=== PATIENT | male | born 1980 | race Caucasian/White ===

== ENCOUNTER 2023-04-03 13:31 | Emergency (ER) | payer BC, SELFPAY ==
[2023-04-03 13:45] VITALS: BP 124/79; PULSE 45; RESP 18; TEMP 36.4; O2SAT 94; BMI 25.8
--- NOTE | 2023-04-03 13:52 | CRLHL7_ITS ---
For Patients: As a result of the Cures Act, medical imaging exams and procedure reports are released immediately into your electronic medical record. You may view this report before your referring provider. If you have questions, please contact your health care provider. Indication: Finger injury Technique: Three views left 2nd finger. Comparison: None. Findings/Impression: Acute complete nondisplaced oblique fracture of the middle 2nd phalanx with likely intra-articular extension. Associated soft tissue swelling. Joint spaces are otherwise maintained. Bony mineralization is age appropriate. Dictated by Stan Monaco MD @ 04/03/2023 3:24:03 PM (Electronically Signed)
[2023-04-03] MEDS: BUPIVACAINE 0.25% 30 ML INJECTION (15:05)
--- NOTE | 2023-04-03 15:13 | ED.NURSE ---
Pt reports feeling dizzy/lightheaded post-digital block injection. Pt reclined, vitals checked. VSS. Pt reports dizziness resolved after several minutes.
[2023-04-03 15:14] VITALS: BP 96/67; PULSE 52; RESP 16; O2SAT 98
--- NOTE | 2023-04-03 15:28 | ED_ITS ---
HPI - General Adult General Date Seen: 04/03/23 Chief complaint: Extremity Pain/Injury, Upper Stated complaint: L middle finger twisted and misshapen (broken?) Time Seen by Provider: 04/03/23 14:41 History of Present Illness HPI narrative: This is a generally healthy 43-year-old male who presents to the ER today with an injury to his left middle finger. He was playing with his daughter on the swings today when he got his finger twisted in injured. He is experiencing pain mostly in the middle phalanx. No associated numbness. He is not able to flex or extend his finger due to pain. No other injuries other than his left middle finger. No injury to his wrist, thumb, upper arm. He did not hurt his head or neck on the swings. Related Data Home Medications Medication Instructions Recorded Confirmed escitalopram oxalate 20 mg tablet 20 mg PO QDAY 05/19/22 04/03/23 fluvoxamine 100 mg tablet 100 mg PO QPM 04/03/23 fluvoxamine 50 mg tablet 25 mg PO 04/03/23 Previous Rx's Medication Instructions Recorded hydrocodone 5 mg-acetaminophen 325 1 tab PO Q4-6H PRN pain #10 tabs 04/03/23 mg tablet Allergies Allergy/AdvReac Type Severity Reaction Status Date / Time No Known Drug Allergies Allergy Verified 04/03/23 13:49 [facility] Medical History (Updated 04/03/23 @ 15:32 by Bradly Figueroa MD) URI (upper respiratory infection) ?J06.9 - Acute upper respiratory infection, unspecified (ICD-10) Social History Smoking Status: Never smoker Do you use any of these nicotine containing products: None Second hand tobacco smoke exposure: No How often do you have a drink containing alcohol: 2-3 times a week AUDIT-C Alcohol total score: 3 Non-prescribed substance use: denies use Exam Narrative: Exam Narrative: Constitutional: Appears well-developed and well-nourished. Alert. Conversant. Non toxic. HENT: Head: Atraumatic. Nose: Nose normal. Mouth/Throat: Oral mucosa is clear and moist. no trismus.. Eyes: Conjunctivae normal. EOM normal. Pupils equal, round, and reactive to light. No scleral icterus. Neck: Normal range of motion. Neck supple. No tracheal deviation present. Cardiovascular: Normal rate, regular rhythm. No gallop. No friction rub. No murmur heard. Symmetric radial artery pulses . Normal distal capillary refill in his finger tips. Pulmonary/Chest: Effort normal. No stridor. No respiratory distress. Musculoskeletal: RUE: Normal range of motion. No tenderness. No deformity LUE: Normal except for his left middle finger- Normal range of motion. No tenderness. No deformity Left hand: Thumb, thenar eminence, body of the hand, hypothenar eminence are normal. Digits 2, 4, 5 are normal. He has tenderness and swelling affecting t he middle phalanx and distal phalanx of the 3rd digit. Range of motion testing in the MCP, PIP, DI P is limited by pain. Swelling seems for dominantly present over the middle phalanx. There does appears to be some rotational deformity of the distal portion of the 3rd digit. No angulation. No laceration. Intact radial and ulnar digital nerve sensory function. RLE: Normal range of motion. No edema. No tenderness. No deformity LLE: Normal range of motion. No edema. No tenderness. No deformity Neurological: Alert and oriented to person, place, and time. Normal strength. CN II-VII intact. No sensory deficit. GCS eye subscore is 4. GCS verbal subscore is 5. GCS motor subscore is 6. Normal coordination Skin: Skin is warm and dry. No rash noted. No pallor. Normal capillary refill. Psychiatric: Normal mood. Normal affect. Const: Vital Signs, click to edit/add: Vital Signs - 24 hr 04/03/23 13:45 04/03/23 15:14 Temperature 97.6 F Pulse Rate [Pulse Oximeter] 45 L 52 L Respiratory Rate 18 16 Blood Pressure [[facility] Upper Arm] 124/79 96/67 Pulse Oximetry 94 98 Oxygen Delivery Me thod Room Air Room Air Course Vital Signs Vital signs: Initial Vital Signs Temperature 97.6 F 04/03/23 13:45 Temperature Source Temporal Artery Scan 04/03/23 13:45 Pulse Rate 45 L 04/03/23 13:45 Respiratory Rate 18 04/03/23 13:45 Blood Pressure 124/79 04/03/23 13:45 Blood Pressure Mean 94 04/03/23 13:45 Blood Pressure Position Sitting 04/03/23 13:45 Pulse Oximetry 94 04/03/23 13:45 Oxygen Delivery Method Room Air 04/03/23 13:45 Vital Signs Temperature 97.6 F 04/03/23 13:45 Pulse Rate 45 L 04/03/23 13:45 Respiratory Rate 18 04/03/23 13:45 Blood Pressure 124/79 04/03/23 13:45 Pulse Oximetry 94 04/03/23 13:45 Oxygen Delivery Method Room Air 04/03/23 13:45 Temperature 97.6 F 04/03/23 13:45 Pulse Rate 52 L 04/03/23 15:14 Respiratory Rate 16 04/03/23 15:14 Blood Pressure 96/67 04/03/23 15:14 Pulse Oximetry 98 04/03/23 15:14 Oxygen Delivery Method Room Air 04/03/23 15:14 Medications Administered Medications: Discontinued Medications Generic Name Dose Route Start Last Admin Trade Name Freq PRN Reason Stop Dose Admin Bupivacaine HCl 30 ml 04/03/23 14:59 04/03/23 15:05 Bupivacaine 0.25% 30 Ml INJECTION 04/03/23 15:00 4 ml ONCE ONE Administration Medical Decision Making MDM Narrative Medical decision making narrative: Very pleasant generally healthy 43-year-old male presents to the ER today with an isolated injury to his left 3rd digit (middle finger) that he sustained today when he was playing on a swing with his daughter. Clinical exam and x-rays confirm the presence of an oblique fracture through the middle phalanges. On my clinical exam he was neurovascularly intact before we perform digital block.. This is a closed fracture. No evidence for any tendon injury or IP joint dislocation. There was a rotational deformity with the distal fragment rotated perhaps 10-20 degrees, compared with the proximal portion of the finger. After digital block and while splinting we did perform a correctional maneuver to correct the rotation. With the nurse's assistance, I placed was splinted using a [place] splint with hypoallergenic tape on the distal phalanx and the proximal phalanx to hold anatomic position with the MCP, PIP, DI P joints all in slight flexion and with correction of the rotational deformity.. After splinting he appeared to be in anatomic position. He had good distal capillary refill. He will need outpatient follow-up with ortho clinic. Discussed the risk that this fracture will could be unstable in May re-rotate. If so he may require fixation or operation. This is an isolated injury to his left middle finger. Discussed splint and fracture care. He will try to control pain with [id number] pain medications. Prescription for [place] (along with opiate and sedation precautions) provided. Precautions for return to the ER reviewed. Questions answered. Imaging Data xr finger: Attestation: I have reviewed the pertinent imaging results. My impression: Oblique middle phalanges fracture Radiologist's impression: Findings/Impression: Acute complete nondisplaced oblique fracture of the middle 2nd phalanx with likely intra-articular extension. Associated soft tissue swelling. Joint spaces are otherwise maintained. Bony mineralization is age appropriate. Discharge Plan Discharge Clinical Impression: Fracture of middle phalanx of finger Patient Disposition: Home, Self-Care Condition: Stable Instructions: Finger Fracture (ED) Additional Instructions: Please do not use your left hand for lifting or grabbing. Keep the splint in place as much as possible. Try to keep your hand dry. If the splint comes loose, you can try to put it back on and we taped it. If you injury or finger or bump it, or if the finger becomes more angulated, return to the ER immediately. Use ice for 15-20 minutes every 3-4 hours for the next 2-3 days to help reduce swelling and pain. Use Tylenol or ibuprofen if needed for pain. Use p rescription pain killer, [place], if needed. Use caution because [place] causes drowsiness, dizziness, sedation, can cause constipation, and can be addictive. Do not drive for 6 hours after you take [place]. Follow up appointment is scheduled at the [facility] on 04/04 with a 9am appointment time. Please arrive at 8:45am to check in and complete paperwork. Make sure to bring your insurance information. If you have any questions or need to reschedule, please call [phone]. [id number] [place] [address] Prescriptions: New hydrocodone-acetaminophen 5-325 mg tablet 1 tab PO Q4-6H PRN (Reason: pain) Qty: 10 0RF No Action escitalopram oxalate 20 mg tablet 20 mg PO QDAY fluvoxamine 100 mg tablet 100 mg PO QPM fluvoxamine 50 mg tablet 25 mg PO Follow Up/Referrals: Manjeet Fernández MD [Referring] - Stand Alone Forms: [employer] Info Instructions
== END 2023-04-03 16:06 | disposition home or self-care (01) ==
LOC: ED 15:38
PROVIDERS: Emergency Provider Emergency Medicine
DX: S62.653A Nondisplaced fracture of middle phalanx of left middle finger, initial encounter for closed fracture (principal); X50.1XXA Overexertion from prolonged static or awkward postures, initial encounter
CPT/HCPCS: 29130; 73140; 99283; J0665